=== PATIENT | male | born 1970 | race Caucasian/White ===

== ENCOUNTER 2019-04-09 06:07 | Outpatient (CLI) | payer OTHER ==
[~2019-04-09] VITALS: Ht 182.9 cm; Wt 104.5 kg
[2019-04-12] MEDS ORDERED: HYDR-3812 PO (13:03)
== END 2019-04-09 10:53 | disposition home or self-care (01) ==
LOC: PREOP 06:07
PROVIDERS: ATTEND Otolaryngology Otolaryngology/Facial Plastic Surgery
DX: Z01.818 Encounter for other preprocedural examination (principal)

== ENCOUNTER → 2021-10-21 | Outpatient (CLI) | payer OTHER ==
[~2021-10-21] VITALS: Ht 180.3 cm; Wt 109.1 kg
[~2021-10-21] MED LIST: ACHD5005 PO
== END | disposition home or self-care (01) ==
LOC: PREOP 05:52
PROVIDERS: ATTEND Surgery
DX: Z01.818 Encounter for other preprocedural examination (principal)

== ENCOUNTER 2021-10-28 11:00 | Day surgery (SDC) | payer OTHER ==
[~2021-10-28] VITALS: Ht 180 cm; Wt 109.1 kg
[2021-10-28] MEDS ORDERED: LACTATED RINGERS 1,000 ML IV STA (11:08)
[2021-10-28] MEDS ORDERED: LIDOCAINE JELLY 2% 6 ML SYRINGE MM PRN (11:15)
[2021-10-28 11:17] VITALS: BP 129/90
[2021-10-28] MEDS ORDERED: MIDAZOLAM 2 MG/2 ML (VERSED) VIAL ONE (12:49)
[2021-10-28] MEDS ORDERED: PROPOFOL INJECTION 50 ML IV ONE (12:50)
--- NOTE | 2021-10-28 12:52 | Progress Note-Pre Operative ---
Pre-Operative Progress Note Date of Available H&P: Oct 28, 2021 Date H&P Reviewed: Oct 28, 2021 Time H&P Reviewed: 11:30 History & Physical: No changes noted Pre-Operative Diagnosis: screening o CRICKET ROBERTSON MD Oct 28, 2021 12:52
--- NOTE | 2021-10-28 12:54 | Discharge Inst-Surgical ---
D/C Lap Instructions-AILYN Follow Up Activity as tolerated High Fiber Diet 25g or more per day Avoid Alcohol, Caffeine, Spicy [place] and Acid foods. Drink 64 fluid oz or more of fluids per day. Symptoms to Report: Fever over 101 degree F, Nausea/Vomiting If any problems/questions: Contact your physician or go to Emergency Room CRICKET ROBERTSON MD Oct 28, 2021 12:54
[2021-10-28] MEDS ORDERED: ONDANSETRON 4 MG (ZOFRAN) ORAL DISSOLVE TAB PO PRN (13:00)
[2021-10-28] MEDS ORDERED: ONDANSETRON 4 MG/2 ML (SDV) Z0FRAN IVP PRN (13:00)
[2021-10-28 13:35] VITALS: BP 111/68
[2021-10-28 13:40] VITALS: BP 107/67
[2021-10-28 13:45] VITALS: BP 101/70
[2021-10-28 14:20] VITALS: BP 119/66
--- NOTE | 2021-10-28 14:36 | Anesthesia-General Post-Op ---
MAC Patient Condition Mental Status/LOC: Same as Preop Cardiovascular: Satisfactory Nausea/Vomiting: Absent Respiratory: Satisfactory Pain: Controlled Complications: Absent Post Op Complications Complications None Follow Up Care/Instructions Patient Instructions None needed. Anesthesiology Discharge Order Discharge Order Patient is doing well, no complaints, stable vital signs, no apparent adverse anesthesia problems. No complications reported per nursing. BERNIE JIMENES CRNA Oct 28, 2021 14:35
--- NOTE | 2021-10-28 14:46 | Progress Note-Post Operative ---
Post-Operative Progess Note Surgeon (s)/Environmental Engineering Manager (s) Surgeon CRICKET ROBERTSON MD Environmental Engineering Manager: none Pre-Operative Diagnosis screening colo Post-Operative Diagnosis small HP polyp rectosigmoid jxn. Procedure & Operative Findings Date of Procedure 10/28/21 Procedure Performed/Findings colonoscopy with bx Anesthesia Type mac Estimated Blood Loss Estimated blood loss (mL): minimal Specimens/Packing Specimens Removed rectosig polyp CRICKET ROBERTSON MD Oct 28, 2021 14:46
--- NOTE | 2021-10-29 00:16 | OPERATIVE REPORT ---
DATE OF SERVICE: 10/28/2021 ATTENDING PRIMARY CARE PHYSICIAN: Parveen Argueta DO. PREOPERATIVE DIAGNOSIS: Screening colonoscopy. POSTOPERATIVE DIAGNOSIS: Small hyperplastic polyp of the rectosigmoid junction, 2 mm in size. PROCEDURE: Colonoscopy with polypectomy with biopsy forceps and cautery. SURGEON: Cricket Echevarria MD. ANESTHESIA: Monitored anesthesia care. ESTIMATED BLOOD LOSS: Minimal. FINDINGS: Small hyperplastic polyp of the rectosigmoid junction, 2 mm in size. DISPOSITION: The patient tolerated the procedure well. INDICATIONS: The patient is a 51-year-old male referred over to us for screening colonoscopy. He states that he has not had a colonoscopy up to this point in his life. He also states that he is doing well, does not report any major issues with diarrhea nor constipation as well as no red blood per rectum nor any dark tarry stools. He also does not report any family history of colon cancer. DESCRIPTION OF PROCEDURE: The patient was brought to the endoscopy suite, laid in left lateral decubitus position. After adequate IV pain and sedative medications and monitored anesthesia care, a digital rectal examination was performed. No significant hemorrhoids identified. Normal sphincter tone was felt and there were no palpable masses. Prostate gland was palpable and appeared normal. The endoscope was then intubated into the anus and rectum gently insufflated. The endoscope was then advanced through the valves of [place] of the rectum with no polyps or any neoplasms identified. At the rectosigmoid junction, a small hyperplastic polyp approximately 2 mm in size was identified. This was biopsied and destroyed using forceps and electrocautery with visualization of good hemostasis. The endoscope was then slowly withdrawn while taking a second look and suctioning of residual air with no additional findings. The patient tolerated the procedure well. We will recommend continued medical management with a high fiber diet with at least 30 grams of fiber daily as well as significant amounts of water to promote soft consistency stools on a daily basis. If he is asymptomatic, he does not need another colonoscopy for another 10 years. Job ID: [id number] DocumentID: [id number] Dictated Date: 10/28/2021 13:35:24 Naphthalene Still Operator Date: 10/29/2021 00:16:31 Dictated By: CRICKET ECHEVARRIA MD [facility]
== END 2021-10-28 14:25 | disposition home or self-care (01) ==
LOC: ENDO 11:00
PROVIDERS: ATTEND Surgery
DX: Z12.11 Encounter for screening for malignant neoplasm of colon (principal); D12.8 Benign neoplasm of rectum
CPT/HCPCS: 88305